=== PATIENT | female | born 1990 | race Caucasian/White ===

== ENCOUNTER 2016-03-25 05:50 | Emergency (ER) | payer MEDICAID, OTHER ==
[2016-03-25] MEDS ORDERED: IOPAMIDOL 370 (76%) 100 ML VIAL IV ONE (05:51)
[2016-03-25] MEDS ORDERED: ONDANSETRON 4 MG/2ML 2 ML VIAL ONE (06:36)
[2016-03-25] MEDS ORDERED: SODIUM CHLORIDE 0.9% 1,000 ML ONE (06:36)
[2016-03-25 06:39] LABS: SPECIFIC GRAVITY 1.025 (1.001-1.030); URINE BILIRUBIN NEGATIVE (NEGATIVE); URINE BLOOD NEGATIVE (NEGATIVE); URINE GLUCOSE (UA) NEGATIVE (NEGATIVE); URINE LEUKOCYTE ESTERASE NEGATIVE (NEGATIVE); URINE NITRITE NEGATIVE (NEGATIVE); URINE PROTEIN TRACE (NEGATIVE); URINE UROBILINOGEN NORMAL (0-1 mg/dl)
[2016-03-25 06:44] LABS: URINE APPEARANCE TURBID; URINE COLOR YELLOW
[2016-03-25 06:46] LABS: HCG,QUALITATIVE URINE NEGATIVE
[2016-03-25 06:57] LABS: URINE AMORPHOUS SEDIMENT 4+ URATES; URINE BACTERIA 0; URINE RBC 0-2 /hpf
[2016-03-25 07:00] LABS: BASO # 0.1 K/mm3 (0.0-0.2); BASO % 0.3 % (0.2-1.0); EOS % 0.1 % (0.9-2.9); HEMATOCRIT 39.3 % (37.0-47.0); HEMOGLOBIN 13.4 gm/l (12.0-16.0); IMM NEUT # 0.1 K/mm3 (0-0.2); IMM NEUT% 0.4 % (0-1); LYMPH # 0.7 (1.0-4.8); LYMPH % 3.6 % (15-45); MEAN CELL VOLUME 92.3 fl (81.0-99.0); MEAN CORPUSCULAR HEMOGLOBIN 31.5 pg (27.0-31.0); MEAN CORPUSCULAR HGB CONC 34.1 g/dl (33.0-37.0); MEAN PLATELET VOLUME 10.5 fl (7.4-10.4); MONO # 1.6 (0.0-0.8); MONO % 8.5 % (4-12); NEUT % 87.1 % (43-75); PLATELET COUNT 236 K/mm3 (130-400); RED CELL DISTRIBUTION WIDTH 11.7 % (11.5-14.5)
[2016-03-25 07:10] LABS: ALB/GLOB RATIO 1.3 (>1.0); ALBUMIN 3.9 gm/dL (3.5-5.7); CALCIUM 9.3 mg/dL (8.6-10.3)
--- NOTE | 2016-03-25 07:27 | CT ---
Exam: CT abdomen and pelvis with contrast COMPARISON: 04/16/2014 INDICATION: Abdominal pain starting Saturday. Right lower quadrant pain and fever. TECHNIQUE: CT examination of the abdomen and pelvis was obtained following the administration of 100 mL Isovue-370 intravenous contrast. FINDINGS: There is wall thickening of the colon, extending from the cecum and through the splenic flexure. The rectosigmoid colon is fairly normal. Mild wall thickening is also noted within the distal ileum. Minor associated inflammatory stranding is present, and reactive lymph nodes are seen within the mesentery measuring up to 10 mm in short axis diameter. The appendix is normal. There is no bowel obstruction, free air or free intraperitoneal fluid. Retroverted uterus is unremarkable. There is no adnexal mass. There is no pelvic lymphadenopathy or fluid collection. A few subcentimeter low-density lesions are again noted within the right lobe of liver, most compatible with cysts. The pancreas, spleen, kidneys, adrenal glands and gallbladder are unremarkable. Lung bases are clear. No worrisome osseous abnormality is identified. IMPRESSION: Extensive wall thickening of the colon, extending from the cecum and to the splenic flexure, as well as within the terminal ileum with reactive lymph nodes within the ileal mesentery, likely reflecting evidence of Crohn disease. No appendicitis or complicating features. Findings discussed with Dr. Kimble at 0723 hours 03/25/2016.
== END 2016-03-25 08:31 | disposition home or self-care (01) ==
LOC: ED 05:50
DX: K50.90 Crohn's disease, unspecified, without complications (principal); R10.9 Unspecified abdominal pain
CPT/HCPCS: 81025; 84703; 85025; 80053; 81001; 74177; 99284 ×2; 96374; 96361 ×2; J2405; J7030; Q9967

== ENCOUNTER 2016-03-27 09:34 | Observation (INO) | payer MEDICAID ==
[2016-03-27 10:51] LABS: ABSOLUTE NEUTROPHIL COUNT 7.7 K/mm3 (1.8-7.7); BASO % 0.4 % (0.2-1.0); EOS % 0.1 % (0.9-2.9); HEMATOCRIT 38.5 % (37.0-47.0); HEMOGLOBIN 13.2 gm/l (12.0-16.0); IMM NEUT% 0.2 % (0-1); LYMPH # 1.3 (1.0-4.8); LYMPH % 13.3 % (15-45); MEAN CELL VOLUME 92.1 fl (81.0-99.0); MEAN CORPUSCULAR HEMOGLOBIN 31.6 pg (27.0-31.0); MEAN CORPUSCULAR HGB CONC 34.3 g/dl (33.0-37.0); MEAN PLATELET VOLUME 10.5 fl (7.4-10.4); MONO # 0.6 (0.0-0.8); MONO % 5.7 % (4-12); NEUT % 80.3 % (43-75); PLATELET COUNT 229 K/mm3 (130-400); RED CELL DISTRIBUTION WIDTH 11.7 % (11.5-14.5)
[2016-03-27 10:54] LABS: I-STAT CHLORIDE 105 mEq/L (101-111); I-STAT CREATININE 0.6 mg/dL (0.6-1.3); I-STAT GLUCOSE 97 mg/dL (70-105); I-STAT TCO2 24 mEq/L (21-31)
[2016-03-27] MEDS ORDERED: ONDANSETRON 4 MG/2ML 2 ML VIAL ONE (10:57)
[2016-03-27] MEDS ORDERED: NALBUPHINE HCL 10 MG/ML AMP ONE (10:57)
[2016-03-27] MEDS ORDERED: METHYLPRED SOD SUCCINATE 125 MG VIAL ONE (11:54)
[2016-03-27 13:13] VITALS: BMI 23.3
[2016-03-27] MEDS ORDERED: PUMP TUBING ONE (13:37)
[2016-03-27] MEDS: SODIUM CHLORIDE 0.9% 1,000 ML IV SCH ×2 (13:43→23:12)
[2016-03-27 14:51] LABS: ALB/GLOB RATIO 1.3 (>1.0); ALBUMIN 3.9 gm/dL (3.5-5.7); CALCIUM 9.1 mg/dL (8.6-10.3)
[2016-03-27] MEDS ORDERED: BLISTEX LIPSTICK 1 EACH TP PRN (15:04)
[2016-03-27] MEDS ORDERED: BISACODYL 5 MG TABLET.EC PO PRN (15:04)
[2016-03-27] MEDS ORDERED: MAGNESIUM HYDROXIDE 30 ML UDCUP PO PRN (15:04)
[2016-03-27] MEDS ORDERED: MENTHOL/CETYLPYRD 1 EACH LOZENGE PO PRN (15:04)
[2016-03-27] MEDS ORDERED: SODIUM CHLORIDE 0.9% 100 ML IV PRN (15:04)
[2016-03-27] MEDS ORDERED: BISACODYL 10 MG SUP PR PRN (15:04)
--- NOTE | 2016-03-27 15:42 | HP ---
MURRAY SKELTON : 1990 DATE OF ADMISSION: March 27, 2016 CHIEF COMPLAINT: Vomiting. HISTORY OF PRESENT ILLNESS: Patient is a previously healthy 26-year-old who several years ago developed abdominal pain and cramping and was told by emergency room physician that she had Crohn's disease and later followed up a generator worker who did not perform a colonoscopy or esophagogastroduodenoscopy who told her she did not have Crohn's disease. Since this initial presentation, she has had about ten other episodes, the most recent being this past week. On , she developed abdominal pain and cramping that was intermittent, and she developed diarrhea with this. Over the weekend the pain became a spasm. She says it feels like her colon is being stabbed with a serrated knife and being twisted. The pain became constant, and she had a fever over the weekend of 101. She presented to the emergency department late Saturday night/early Saturday morning, was evaluated and discharged home with Cassie and Norman. Last night she developed vomiting with continued diarrhea and pain, just clear liquid fluid vomiting. Due to the vomiting, she presented again to the emergency department. Due to her continued symptoms, she is being admitted to the hospital for further evaluation. She will receive a colonoscopy in the morning for tissue diagnosis, if she has Crohn's or is suffering from another illness. While in the emergency department, she received some pain medication, antiemetics and a dose of solumedrol. PAST MEDICAL HISTORY: None. MEDICATIONS: None. ALLERGIES: DILAUDID CAUSED HER TO FREAK OUT. FAMILY MEDICAL HISTORY: Includes a sister with Crohn's disease. She is unaware of any paternal family medical history. SOCIAL HISTORY: She works at [employer] and she lives with her mom. PAST SURGICAL HISTORY: Includes: 1. Adenoidectomy. 2. Tonsillectomy. REVIEW OF SYSTEMS: GENERAL: Fevers. HEENT: No sore throat, no congestion. ABDOMEN: Abdominal pain, vomiting, diarrhea. CARDIOVASCULAR: No chest pain or pressure. RESPIRATORY: No difficulty in breathing, shortness of breath or cough. GENITOURINARY: No difficulties with urination. MUSCULOSKELETAL: Back ache. NEUROLOGIC: No numbness, tingling or lightheadedness or dizziness. PHYSICAL EXAM: VITAL SIGNS: Temperature of 98.5, heart rate of 64, blood pressure 105/66, she is saturating 98% on room air. GENERAL: She is alert and oriented in no acute distress, conversant. HEENT: Normocephalic, atraumatic. No tenderness to palpation. Her mucous membranes are moist. Pupils are equal, round and reactive. Extraocular muscles are intact. There is no scleral icterus or conjunctival injection. NECK: Supple, trachea is midline. RESPIRATORY: Clear to auscultation bilaterally. No rhonchi or wheezing. CARDIOVASCULAR: Positive S1 and S2. It is regular. She has palpable pulses bilaterally radially and posterior tibial. ABDOMEN: Active bowel sounds, soft. It is tender, no distention. MUSCULOSKELETAL: Moving all extremities without tenderness, 5/5 upper and lower extremity strength bilaterally. NEUROLOGIC: She is alert and oriented. LABORATORIES: White blood count of 9.6, hemoglobin of 13.2, hematocrit 38.5, platelet count of 229. It is predominantly neutrophils. A VBG total CO2 at 24. Sodium 141, potassium 2.6, chloride 105, carbon dioxide 27, BUN is less than 3, creatinine is 0.6, glucose of 97. DIAGNOSTIC IMAGING: CT report from March 25, 2016 reads extensive wall thickening of the colon extending from cecum to splenic flexure as well as within the terminal ileum with reactive lymph nodes within the ileal mesentery likely reflecting evidence of Crohn's disease. No appendicitis or complicating features. ASSESSMENT: This is a 26-year-old female with multiple episodes of severe abdominal pain, cramping, diarrhea, with intractable vomiting and second emergency room presentation in two days with evidence of colitis on CT exam with possible Crohn's or some other inflammatory bowel disease. PLAN: 1. Intractable vomiting. We will provide her with IV fluids, antiemetics, and monitor. 2. Colitis. She will have a colonoscopy in the morning with colon prep overnight. We will continue with IV fluids, clear liquids, diet as tolerated, and pain management.
[2016-03-27] MEDS ORDERED: SODIUM CHLORIDE 0.9% FLUSH 10 ML ONE ×2 (18:02→22:26)
[2016-03-27] MEDS ORDERED: IV START KIT ONE ×3 (18:02→23:02)
[2016-03-27] MEDS: MORPHINE SULFATE 2 MG/ML SYRINGE IV PRN ×2 (18:21→19:24)
[2016-03-27] MEDS: ONDANSETRON 4 MG/2ML 2 ML VIAL IV PRN (18:21)
[2016-03-27] MEDS: SODIUM,POTASSIUM,&MAG SULFATES 354 ML (2 DOSE KIT) PO SCH (18:25)
[2016-03-27] MEDS ORDERED: PROCHLORPERAZINE MALEATE 10 MG TABLET PO PRN (19:59)
[2016-03-27] MEDS ORDERED: METOCLOPRAMIDE HCL 5 MG/ML 2ML VIAL IV PRN (20:00)
[2016-03-27] MEDS: DOCUSATE SODIUM 100 MG CAPSULE PO SCH (21:15)
[2016-03-27] MEDS: ACETAMINOPHEN 325 MG TABLET PO PRN (23:18)
[2016-03-28] MEDS: SODIUM,POTASSIUM,&MAG SULFATES 354 ML (2 DOSE KIT) PO SCH (05:04)
[2016-03-28] MEDS: ONDANSETRON 4 MG/2ML 2 ML VIAL IV PRN (05:04)
[2016-03-28] MEDS: ACETAMINOPHEN 325 MG TABLET PO PRN (05:09)
[2016-03-28] MEDS ORDERED: LACTATED RINGERS 1,000 ML IV SCH (06:30)
[2016-03-28 07:05] LABS: CALCIUM 9.4 mg/dL (8.6-10.3)
[2016-03-28] MEDS: SODIUM CHLORIDE 0.9% 1,000 ML IV SCH (07:19)
[2016-03-28 07:51] VITALS: BP 127/89
[2016-03-28] MEDS ORDERED: PROPOFOL 40 ML IV ONE (08:39)
[2016-03-28] MEDS ORDERED: FENTANYL 100 MCG/2 ML VIAL ONE (08:39)
[2016-03-28] MEDS ORDERED: MIDAZOLAM HCL 1 MG/ML 2ML VIAL ONE (08:50)
[2016-03-28] MEDS: DOCUSATE SODIUM 100 MG CAPSULE PO SCH (09:07)
[2016-03-28] MEDS ORDERED: SODIUM CHLORIDE 0.9% FLUSH 10 ML ONE (10:07)
--- NOTE | 2016-03-28 10:18 | PDOC5 ---
ADMIT DATE: 03/27/16 DISCHARGE DATE: 03/28/16 ADMISSION DIAGNOSES: Colitis Discharge Diagnoses: Crohn's Disease PROCEDURES PERFORMED THIS HOSPITALIZATION: Colonoscopy CONSULTATIONS: Dr. Abilio Saini, [facility] COURSE: This is a 26 year old female who presented to the emergency department for severe nausea and vomiting. This was her 2nd visit in 2 days. Prior visit, she had a CT exam that showed diffuse colitis. She returned to the ED with worsening pain and vomiting. She was admitted to the hospital for symptom management with improvement in her pain and resolution of vomiting and underwent a colonoscopy the morning of discharge. Colonoscopy revealed Crohn's disease in the rectosigmoid junction, transverse colon, ascending colon, ileocecal valve and terminal ileum. Medications, colazal and dicyclomine were called in to her pharmacy. - Exam Vital Signs Temperature 97.9 F 03/28/16 07:50 Pulse Rate 57 03/28/16 07:50 Respiratory Rate 18 03/28/16 07:50 Blood Pressure 127/89 03/28/16 07:50 O2 Saturation by Pulse Oximetry 100 03/28/16 07:50 Oxygen Delivery Method Room Air Oxygen Flow Rate 0 General: Alert, Oriented x3, Cooperative, No Acute Distress HEENT: Atraumatic, PERRLA, EOMI, Mucous membr. moist/pink Lungs: Clear to Auscultation Bilaterally, Normal Air Movement Cardiovascular: Regular Rate and Rhythm, Normal S1, Normal S2 Abdomen: Soft, Non-Distended, No Rigid, No Tenderness, No Rebounding Extremities: No Cyanosis, No Edema, No Tenderness Neurological: Normal Speech Psych/Mental Status: Normal Mood - Results Laboratory 03/28/16 06:20 03/28/16 06:20 BUN 5 L Estimated GFR 122 H Imaging Results: CT Abdomen pelvis 03/25/2016: extensive wall thickening of colon, extending from cecum to splenic flexure as well as terminal ileum. Reactive lymph nodes within ileal mesentery, reflecting Crohn's. Colonoscopy: Mild Crohn's colitis in the rectosigmoid junction, transverse colon , ascending colon, ileocecal valve and terminal ileum - Problems:Assessment/Plan (1) Crohn disease Qualifiers: Gastrointestinal tract location: small and large intestine Digestive disease complication type: without complication Qualifier Code: (K50.80) Crohn's disease of both small and large intestine without complications Status: Acute Assessment/Plan: New diagnosis. Colazal and dicyclomine sent to pharmacy - Discharge Plan Discharge Medications: Colazal and dicyclomine sent to your pharmacy Follow-Up: Abilio Saini MD [Staff Physician] - Condition: Stable Disposition: Home
--- NOTE | 2016-04-02 14:28 | SURGPATH ---
[facility] [address] [place] [id number] Patient Name: MURRAY SKELTON MR#: [id number] : 1990 Gender: F Specimen #: [id number] Collected: 03/28/2016 Received: 03/30/2016 Reported: 04/02/2016 Submitting Phys: ADAM MCCULLOUGH Copy To Phys: KAYLA PRICE (GENE) [facility] Clinical History / Pre-Operative Diagnosis: Abdominal pain and abnormal abdominal CT, rule out; ileitis and colitis Specimen Source / Surgical Procedure Performed: #1 terminal ileum biopsy, #2 cecal biopsy, #3 sigmoid biopsy 30 cm Interpretation: 1. TERMINAL ILEUM, BIOPSY: - PATCHY ACTIVE ILEITIS WITHOUT CHRONIC ARCHITECTURAL DISTORTION 2. CECUM, BIOPSY: - DIFFUSE ACTIVE COLITIS WITHOUT CHRONIC ARCHITECTURAL DISTORTION - FOCAL ULCERATION - NO DYSPLASIA SEEN 3. SIGMOID COLON, 30 CM, BIOPSY: - DIFFUSE ACTIVE COLITIS WITHOUT CHRONIC ARCHITECTURAL DISTORTION - NO DYSPLASAI SEEN Comment: The differential diagnosis includes an acute self-limited colitis as there is not much architectural distortion to suggest chronicity. However, clinical correlation is recommended to exclude inflammatory bowel disease. Electronically Signed Out Harmony Carranza M.D. Gross Description: The specimen is received in three formalin filled containers, labeled with the patient's name. 1. The specimen is labeled "terminal ileum" and consists of two irregularly shaped fragment(s) of galarza tissue aggregating to 0.9 x 0.3 x 0.2 cm. The specimen is entirely submitted in cassette 1A. 2. The specimen is labeled "cecum" and consists of one irregularly shaped fragment(s) of galarza tissue aggregating to 0.5 x 0.3 x 0.2 cm. The specimen is entirely submitted in cassette 2A. 3. The specimen is labeled "sigmoid 30 cm" and consists of four irregularly shaped fragment(s) of galarza tissue aggregating to 0.4 x 0.3 x 0.1 cm. The specimen is entirely submitted in cassette 3A. JESE Bates Microscopic Description: Part 1: Sections show terminal ileum with overall intact architecture with a villous to crypt ratio of three-one. Focal active inflammation is seen with neutrophils in the lamina propria, in association with focally increased lymphocytes within the epithelium. Focal cryptitis is also seen. No granulomas or dysplasia is seen. Part 2: Sections show active colitis with overall intact architecture. Diffuse active colitis is seen with increased neutrophils within the lamina propria along with cryptitis and crypt abscesses. Focal ulceration is also seen. A reactive lymphoid aggregate is seen. Pseudomembranes are not seen. No granulomas or dysplasia is seen. Part 3: Overall intact architecture is seen but there is diffuse active inflammation with neutrophils within the lamina propria along with cryptitis and crypt abscesses. Reactive epithelial changes are seen. No definitive granulomas are seen. No dysplasia is seen. 1: [id number] 2: 21473 3: [id number] A09
== END 2016-03-28 12:05 | disposition home or self-care (01) ==
LOC: ED 09:34 → MS 12:08
PROVIDERS: ADMIT Family Medicine; ATTEND Family Medicine
PROC: 0DJD8ZZ Inspection of Lower Intestinal Tract, Via Natural or Artificial Opening Endoscopic (ICD-10-PCS; principal; 2016-03-27)
DX: K50.80 Crohn's disease of both small and large intestine without complications (principal)
CPT/HCPCS: 85025; 80048; 80047; 80053; 36415; 96375 ×2; 99284; 96374; 99285; 45378; A9270 ×4; J3010; J2270 ×2; J2300; J2930; J2250; J2405 ×3; J7120; J7030 ×3